=== PATIENT | female | born 1985 | race Caucasian/White ===

== ENCOUNTER 2017-08-17 19:28 | Emergency (ER) | payer OTHER ==
[~2017-08-17] VITALS: Ht 167.6 cm; Wt 57.0 kg
[~2017-08-17 19:28] MED LIST: ACET-2158 PO; FERR240T9 PO; HYDR-3498 PO; HYDR2TAB36 PO; PRENAT PO
[2017-08-17 19:31] VITALS: Ht 167.6 cm; Wt 57.0 kg
[2017-08-17] MEDS ORDERED: ONDANSETRON (ODT) 4 MG TAB ODT STA (19:54)
[2017-08-17] MEDS ORDERED: ACETAMINOPHEN 500 MG TAB PO STA (19:54)
[2017-08-17 20:28] LABS: BASOPHIL # 0.1 10^3/ul (0.0-0.1); BASOPHILS % 0.4 % (0.0-2.0); EOSINOPHILS # 0.2 10^3/ul (0.0-0.5); EOSINOPHILS % 1.9 % (0.0-7.0); HEMATOCRIT 38.4 % (37.0-47.0); LYMPHOCYTES # 2.3 10^3/ul (0.8-2.9); LYMPHOCYTES % 19.5 % (15.0-51.0); MEAN CORPUSCULAR HEMOGLOBIN 29.2 pg (29.0-33.0); MEAN CORPUSCULAR HGB CONC 33.9 g/dl (32.0-37.0); MEAN CORPUSCULAR VOLUME 86.3 fl (82.0-101.0); MEAN PLATELET VOLUME 10.8 fl (7.4-10.4); MONOCYTE # 0.8 10^3/ul (0.3-0.9); MONOCYTES % 6.5 % (0.0-11.0); NEUTROPHIL # 8.5 10^3/ul (1.6-7.5); NEUTROPHILS % 71.4 % (39.0-77.0); PLATELET COUNT 250 10^3/UL (140-415); RED BLOOD COUNT 4.45 10^6/ul (4.20-5.40); WHITE BLOOD COUNT 11.9 10^3/ul (4.8-10.8)
[2017-08-17 20:32] LABS: ADD UMIC NO; UR ASCORBIC ACID 20 mg/dL (NEGATIVE); UR BILIRUBIN (Dip) NEGATIVE (NEGATIVE); UR BLOOD (Dip) NEGATIVE (NEGATIVE); UR CLARITY CLEAR (CLEAR); UR COLOR YELLOW (YELLOW); UR GLUCOSE (Dip) NEGATIVE (NEGATIVE); UR KETONES (Dip) NEGATIVE (NEGATIVE); UR LEUKOCYTE ESTERASE (Dip) NEGATIVE Leu/ul (NEGATIVE); UR NITRITE (Dip) NEGATIVE (NEGATIVE); UR SPECIFIC GRAVITY (Dip) 1.009 (1.003-1.030); UR TOTAL PROTEIN (Dip) NEGATIVE (NEGATIVE); UR UROBILINOGEN (Dip) NEGATIVE (NEGATIVE)
--- NOTE | 2017-08-17 21:15 | ERD ---
ER Documentation Chief Complaint Date/Time DATE: 08/17/17 TIME: 21:13 Chief Complaint 6 wks , vaginal bleeding HPI This is a 32-year-old female who presents the emergency department today complaining of some vaginal spotting that started last night and was worse today. Patient states that she had had some left-sided pelvic pain and went to her doctor a few days ago and that is when she found out she was told she is somewhere between 6-10 weeks . States she took Tylenol yesterday. States her last menstrual period was in June. States she has some nausea but denies any fevers or chills or dysuria ROS All systems reviewed and are negative except as per history of present illness. Medications Home Meds Active Scripts Ondansetron Hcl* (Zofran*) 4 Mg Tablet, 4 MG PO Q6H for NAUSEA AND/OR VOMITING, #30 TAB Prov:STAN VAZQUEZ PA-C 08/17/17 Acetaminophen* (Tylophen*) 500 Mg Capsule, 1 CAP PO Q6H Y for PAIN AND OR ELEVATED TEMP, #30 CAP Prov:STAN VAZQUEZ PA-C 08/17/17 Hydromorphone Hcl* (Dilaudid*) 2 Mg Tab, 2 MG PO Q6H Y for severe pain for 14 Days, TAB Prov:BONNY GLASS MD 11/18/14 Hydrocodone Bit/Acetaminophen (Anexsia 5-325 Mg Tablet) 1 Tab Tab, 1 TAB PO Q6H Y for MODERATE PAIN LEVEL 4-6 for 28 Days, TAB Prov:BONNY GLASS MD 11/18/14 Acetaminophen (TYLENOL 325 MG TAB) 325 Mg Tab, 650 MG PO Q6H Y for PAIN LEVEL 1- 3 OR FEVER for 14 Days, TAB Prov:BONNY GLASS MD 11/18/14 Reported Medications Ferrous Gluconate (Iron) 1 Tab Tablet, 1 TAB PO DAILY 11/12/14 Multivit/Min/Fol Ac/Iron/Pren* ( S*) 1 Tab Tab, 1 TAB PO DAILY, TAB 11/12/14 Allergies Allergies: Coded Allergies: codeine (Verified Adverse Reaction, Mild, dizziness and nausea, 11/12/14) hydrocodone (Verified Adverse Reaction, Mild, dizziness, nausea, 11/12/14) PMhx/Soc History of Surgery: Yes ( X1) Anesthesia Reaction: No Hx Neurological Disorder: No Hx Respiratory Disorders: No Hx Cardiac Disorders: No Hx Psychiatric Problems: No Hx Miscellaneous Medical Probl: No Hx Alcohol Use: No Hx Substance Use: No Hx Tobacco Use: No Smoking Status: Never smoker Physical Exam Vitals Vital Signs Date Time Temp Pulse Resp B/P Pulse Ox O2 Delivery O2 Flow Rate FiO2 08/17/17 19:31 99.1 87 20 109/50 100 Physical Exam Const: NAD Head: Atraumatic Eyes: Normal Conjunctiva ENT: Normal External Ears, Nose and Mouth. Neck: Full range of motion..~ No meningismus. Resp: Clear to auscultation bilaterally Cardio: Regular rate and rhythm, no murmurs Abd: Soft, mild left sided pelvic tenderness. Normal bowel sounds. No tenderness at McBurney's Skin: No petechiae or rashes Back: No midline or flank tenderness Ext: No cyanosis, or edema Neur: Awake and alert Psych: Normal Mood and Affect Result Diagram: 08/17/172021 Results 24 hrs Laboratory Tests Test 08/17/17 20:22 White Blood Count 11.910^3/ul Red Blood Count 4.4510^6/ul Hemoglobin 13.0g/dl Hematocrit 38.4% Mean Corpuscular Volume 86.3fl Mean Corpuscular Hemoglobin 29.2pg Mean Corpuscular Hemoglobin Concent 33.9g/dl Red Cell Distribution Width 12.0% Platelet Count 64599^3/UL Mean Platelet Volume 10.8fl Neutrophils % 71.4% Lymphocytes % 19.5% Monocytes % 6.5% Eosinophils % 1.9% Basophils % 0.4% Nucleated Red Blood Cells % 0.0/100WBC Neutrophils # 8.510^3/ul Lymphocytes # 2.310^3/ul Monocytes # 0.810^3/ul Eosinophils # 0.210^3/ul Basophils # 0.110^3/ul Nucleated Red Blood Cells # 0.010^3/ul Urine Color YELLOW Urine Clarity CLEAR Urine pH 6.0 Urine Specific [place] 1.009 Urine Ketones NEGATIVEmg/dL Urine Nitrite NEGATIVEmg/dL Urine Bilirubin NEGATIVEmg/dL Urine Urobilinogen NEGATIVEmg/dL Urine Leukocyte Esterase NEGATIVELeu/ul Urine Hemoglobin NEGATIVEmg/dL Urine Glucose NEGATIVEmg/dL Urine Total Protein NEGATIVEmg/dl Beta HCG, Quantitative 44772.0mIU/ml Current Medications Medications (Trade) Dose Ordered Sig/Mono Route PRN Reason Start Time Stop Time Status Last Admin Dose Admin Acetaminophen (Tylenol Tab) 500 mg ONCE STAT PO 08/17/17 19:54 08/17/17 19:56 DC 08/17/17 20:23 Ondansetron HCl (Zofran Odt) 4 mg ONCE STAT ODT 08/17/17 19:54 08/17/17 19:56 DC 08/17/17 20:23 DIAGNOSTIC IMAGING REPORT Patient: DORA HALL : 1985 Age: 32 Sex: F MR #: [id number] DOS: 08/17/172012 Ordering MD: STAN VAZQUEZ PA-C Location: [facility] Room/Bed: PROCEDURE: Obstetrical ultrasound. CLINICAL INDICATION: Vaginal bleeding. TECHNIQUE: Multiple sonographic images of the pelvis were obtained with transabdominal and endovaginal technique. Images were obtained with durbin scale and color Doppler. COMPARISON: No prior studies are available for comparison. FINDINGS: The uterus is well visualized measuring 8.3 x 5.0 x 5.5 cm. No abnormal uterine mass is identified. There is an intrauterine gestational sac with a pole identified. heart tones of 121 beats per minute are identified. The crown-rump length averages 0.63 cm, compatible with 6 weeks and 3 days. The mean sac diameter averages 1.98 cm, compatible with 6 weeks and 6 days. A yolk sac is identified. There is a small subchorionic collection measuring 1.2 cm. There is no pelvic free fluid. The right ovary measures 1.7 x 1.6 x 2.1 cm and the left ovary measures 1.7 x 1.7 x 1.8 cm. There is normal flow to both ovaries. There is no suspicious adnexal mass identified. IMPRESSION: Single live intrauterine with an estimated gestational age of 6 weeks and 5 days, with an ultrasound [place] of 04/07/2018. Small subchorionic hemorrhage. .Sam Love MD, MD Date Time Electronically viewed and signed by .Sam Love MD, MD on 08/17/2017 21:39 .T/ CC: STAN VAZQUEZ PA-C Procedures/MDM This is a A1 32-year-old female who presents to the emergency department today complaining of vaginal bleeding. Patient states she is approximately 6- 10 weeks . Given this I did obtain a complete OB workup. Laboratory work shows a mildly elevated white blood cell count. She is not anemic. Platelets are within normal limits. UA is negative for infection Beta quant hCG 34620.0 Rh status AB + Ultrasound shows a single live intrauterine with an estimated gestational age of 6 weeks and 5 days with an estimated date of delivery of April 07, 2018. heart tones are 121 bpm. There is no suspicious adnexal mass. There is normal flow to both ovaries. There is no pelvic free fluid. There is a small subchronic hemorrhage. Patient symptoms at this time is consistent with vaginal bleeding in early to be due to her subchorionic hemorrhage. Other differentials to consider early normal versus early failed Patient is afebrile and otherwise well-appearing. I have low suspicion for ectopic , tubo ovarian abscess, ovarian torsion. I have explained the results to the patient. I have explained to the patient that they may follow back up with her primary care physician. Patient was given Tylenol and Zofran here in the emergency department. She will be given a prescription for home. At this time the patient is stable for discharge and outpatient management. Patient should follow up with their PCP in the next 1-2 days. They may return to the emergency department sooner for any persistent or worsening of symptoms. Patient understood and agreed with the plan. Departure Diagnosis: Primary Impression: Vaginal bleeding in patient at less than 20 weeks gestation Condition: Fair STAN VAZQUEZ PA-C Aug 17, 2017 21:15
--- NOTE | 2017-08-17 21:40 | RADRPT ---
PROCEDURE: Obstetrical ultrasound. CLINICAL INDICATION: Vaginal bleeding. TECHNIQUE: Multiple sonographic images of the pelvis were obtained with transabdominal and endova ginal technique. Images were obtained with durbin scale and color Doppler. COMPARISON: No prior studies are available for comparison. FINDINGS: The uterus is well visualized measuring 8.3 x 5.0 x 5.5 cm. No abnormal uterine mass is identified. There is an intrauterine gestational sac with a pole identified. heart tones of 121 beat s per minute are identified. The crown-rump length averages 0.63 cm, compatible with 6 weeks a nd 3 days. The mean sac diameter averages 1.98 cm, compatible with 6 weeks and 6 days. A yolk sac is identified. There is a small subchorionic collection measuring 1.2 cm. There is no pelvic free fluid. The right ovary measures 1.7 x 1.6 x 2.1 cm and the left ovary measur es 1.7 x 1.7 x 1.8 cm. There is normal flow to both ovaries. There is no suspicious adnexal mass sherley ntified. IMPRESSION: Single live intrauterine with an estimated gestational age of 6 weeks and 5 days, with an ultrasound [place] of 04/07/2018. Small subchorionic hemorrhage. .Sam Love MD, Date Time Electronically viewed and signed by .Sam Love MD, MD on 08/17/2017 21:39 .T/
[2017-08-17] MEDS ORDERED: ONDA4TAB8 PO (22:03)
[2017-08-17] MEDS ORDERED: ACET500C5 PO (22:03)
== END 2017-08-17 22:30 | disposition home or self-care (01) ==
LOC: FTE 19:28
DX: O20.9 Hemorrhage in early pregnancy, unspecified (principal); R10.2 Pelvic and perineal pain; Z3A.01 Less than 8 weeks gestation of pregnancy
CPT/HCPCS: 36415; 76801; 76817; 81003; 84702; 85025; 86900; 86901; Z7502; Z7610

== ENCOUNTER 2018-04-06 12:22 | Emergency (ER) | END 2018-04-06 13:09 | disposition home or self-care (01) ==

== ENCOUNTER 2018-05-10 18:33 | Emergency (ER) | END 2018-05-10 23:40 | disposition home or self-care (01) ==

== ENCOUNTER 2018-09-08 11:54 | Emergency (ER) | END 2018-09-08 16:47 | disposition home or self-care (01) ==